=== PATIENT | female | born 1965 | race Hispanic/Latino ===

== ENCOUNTER → 2019-01-09 | Day surgery (SDC) | payer OTHER ==
[~2019-01-09] MED LIST: FENTANYL CITRATE/PF 100MCG/2 ML INJ ONE; MIDAZOLAM HCL 2 MG/2 ML VIAL ONE; PROPOFOL IV EMULSION 10 MG/ML 50 ML VIAL ONE
--- OUTSIDE RECORDS SUMMARY | 2019-01-09 09:57 | XMS REPORT ---
Author [facility] Address Unknown Phone Unavailable Care Team Providers Care Sweatband Maker Name Role Phone Unavailable Unavailable Problems This patient has no known problems. Allergies, Adverse Reactions, Alerts This patient has no known allergies or adverse reactions. Medications This patient has no known medications. Encounters Start Date/Time End Date/Time Encounter Type Admission Type Attending [facility] Facility Care Department Encounter ID 2017-09-22 08:03:15 2017-09-22 08:03:15 Outpatient [facility] [id number] 2017-09-13 00:00:00 2017-09-13 00:00:00 Outpatient [facility] [id number] 2017-09-12 16:21:15 2017-09-12 16:21:15 Outpatient [facility] [id number] 2017-09-08 13:00:27 2017-09-08 13:00:27 Outpatient [facility] [id number] 2017-09-08 10:37:13 2017-09-08 10:37:13 Outpatient [facility] [id number] 2017-09-08 08:32:16 2017-09-08 08:32:16 Outpatient [facility] [id number]
[2019-01-09 14:30] VITALS: BP 118/73
--- NOTE | 2019-01-09 14:44 | Operative Report ---
DATE OF PROCEDURE: 01/09/2019 SURGEON: Quan Nicolas MD PROCEDURES: EGD with biopsies and polypectomy and a colonoscopy with biopsies. INDICATIONS FOR EGD: Heartburn, bloating, early satiety. INDICATIONS FOR COLONOSCOPY: Colorectal cancer screening. MEDICATIONS: The patient was done under MAC, please see anesthesiologist's note. PROCEDURE IN DETAIL: With the patient in the left lateral decubitus position, the flexible fiberoptic Olympus gastroscope was introduced into the esophagus under direct visualization without any difficulty. There was some patchy intense erythema noted in distal esophagus. ? Grade 1 esophageal varices were noted without active bleeding or stigmata of recent hemorrhage. A minute tongue of velvety red mucosa was noted to extend proximally from the GE junction that was biopsied to rule out Santiago. The GE junction was somewhat nodular and friable, and the scope was then advanced with ease into the stomach, traversing a small sliding hiatal hernia. The mucosa overlying the antrum and the body revealed some patchy erythema and [id number] edema, and biopsies were obtained and sent to stain for H. pylori. Multiple gastric polyps were noted in the body of the stomach and multiple gastric polyps were noted in the body of the stomach and several were removed per cold and hot snare polypectomy. The pylorus was of normal contour and shape, it was intubated with ease and the scope was advanced all the way to the second portion of the duodenum. Biopsies were obtained from the second portion and duodenal bulb to rule out sprue. The scope was then withdrawn back into the stomach and retroflexed. Mucosa overlying the fundus and the cardia appeared to be within normal limits. The scope was then straightened out, it was subsequently withdrawn, and the patient tolerated the procedure well. IMPRESSION: 1. Distal esophagitis. 2. Grade 1 esophageal varices versus prominent subepithelial esophageal veins. No active bleeding or stigmata of recent hemorrhage. 3. Rule out Santiago esophagus. 4. Small sliding hiatal hernia. 5. Gastritis, biopsied, biopsies sent to stain for Helicobacter pylori. 6. Gastric polyps, body, multiple removed per cold and hot snare polypectomy. 7. Rule out sprue. PLAN: Follow up histology. Initiate Protonix 40 mg one p.o. q.a.m. before meals. Check hepatic panel. Consider ultrasound of the liver. The patient was then turned around and after adequate lubrication of the anal canal, the flexible fiberoptic Olympus colonoscope was inserted into the rectum with ease and advanced all the way to the cecum. Mucosa overlying the cecum appeared to be within normal limits. The ileocecal valve was intubated and the scope was advanced into the terminal ileum. There was some mild patchy inflammatory changes noted in the terminal ileum and biopsies were obtained. The scope was then withdrawn back into the colon. Mucosa overlying the ascending, transverse, and descending overall appeared to be within normal limits. There was some low-grade inflammatory changes noted in the sigmoid and rectum, and biopsies were obtained. The scope was then retroflexed into the distal rectum and small internal hemorrhoids were noted, none of which was actively bleeding. The scope was then straightened out, it was subsequently withdrawn, and the patient tolerated the procedure well. IMPRESSION: 1. Proctosigmoiditis, low-grade. 2. Internal hemorrhoids, none actively bleeding. PLAN: Follow up histology. Initiate high-fiber, low-fat diet. Initiate high-fiber supplement. Start Visbiome 1 p.o. b.i.d. The patient might benefit from a followup colonoscopy in 5 to 10 years. MD SEGUN Figueroa/NAVI /[id number] cc: Akilah Sandra MD
[2019-01-09 15:27] LABS: ALBUMIN 3.5 g/dL (3.5-5.0); BILIRUBIN,DIRECT 0.3 mg/dL (0.0-0.5)
== END | disposition home or self-care (01) ==
LOC: OR 09:50
PROVIDERS: ATTEND Internal Medicine Gastroenterology
DX: K29.50 Unspecified chronic gastritis without bleeding (principal); K31.7 Polyp of stomach and duodenum; K63.89 Other specified diseases of intestine; K22.8 Other specified diseases of esophagus; K20.9 Esophagitis, unspecified; K21.9 Gastro-esophageal reflux disease without esophagitis; K44.9 Diaphragmatic hernia without obstruction or gangrene; K64.8 Other hemorrhoids; D72.820 Lymphocytosis (symptomatic); Z01.810 Encounter for preprocedural cardiovascular examination; Z68.41 Body mass index [BMI] 40.0-44.9, adult
CPT/HCPCS: 36415; 43239; 43251; 45380; 80076; 81025; 93005; J2250; J2704; J3010; 45378